=== PATIENT | male | born 1945 | race Caucasian/White ===

== ENCOUNTER 2019-01-09 07:33 | Outpatient (CLI) | payer MEDICARE, OTHER ==
--- NOTE | 2019-01-09 09:17 | MRI ---
MRI Cervical spine without contrast: HISTORY: Neck pain with loss of strength in left hand/wrist for one-two months. Lifting injury at gym. COMPARISON: None available. FINDINGS: The craniocervical junction is unremarkable. C1-2:No significant stenosis. C2-3:There is a mild disc osteophyte complex which narrows the ventral subarachnoid space but does no t encroach on the spinal cord. Neural foramina are patent. C3-4:There is loss of intervertebral disc height. A broad-based disc osteophyte complex is present. F acet degenerative changes are noted. There is moderate narrowing of the central spinal canal. The disc osteophyte complex does result in mass effect on the spinal cord. Normal signal intensity is dem onstrate in the spinal cord at this level. Moderate to severe left and severe right-sided neural foraminal narrowing are present. C4-5:There is loss of intervertebral disc height. Broad-based disc osteophyte complex is present. Thi s narrows the ventral subarachnoid space with slight mass effect on the anterior aspect of the spinal cord. Normal signal intensity is demonstrated in the spinal cord. There is mild uncinate proce ss hypertrophy present. There is mild narrowing of each neural foramen. C5-6:There is loss of intervertebral disc height. Broad-based disc osteophyte complex is present with prominent uncinate process hypertrophy on the right. There is flattening of the anterior aspect of the spinal cord slightly greater on the right. There is mild increased T2-weighted signal intensity s een within the anterior aspect of the right hemicord which is likely related to a focal area of myelomalacia. Moderate bilateral neural foraminal narrowing is present. C6-7: There is a mild broad-based disc osteophyte complex. This narrows the ventral subarachnoid spac e. Uncinate process hypertrophy is present bilaterally. There is mild right and [id number] left-sided neural foraminal narrowing. C7-T1:No significant disc bulge or disc herniation is present. Central spinal canal and neural forami na are patent. 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 There does appear to be small mild focal area of myelomalacia within the anterior aspect of the right hemicord.
== END 2019-01-09 07:34 | disposition home or self-care (01) ==
LOC: MRI 07:33
PROVIDERS: ATTEND Orthopaedic Surgery Hand Surgery
DX: M48.02 Spinal stenosis, cervical region (principal); M47.22 Other spondylosis with radiculopathy, cervical region; G95.89 Other specified diseases of spinal cord
CPT/HCPCS: 72141

== ENCOUNTER 2023-06-02 08:54 | Outpatient (CLI) | payer MEDICARE, OTHER | END 2023-06-02 08:55 | disposition home or self-care (01) | LOC: SCSMRI 08:54 | PROVIDERS: ATTEND Orthopaedic Surgery | DX: M48.061 Spinal stenosis, lumbar region without neurogenic claudication (principal); M47.816 Spondylosis without myelopathy or radiculopathy, lumbar region; M47.817 Spondylosis without myelopathy or radiculopathy, lumbosacral region | CPT/HCPCS: 72148 ==